=== PATIENT | male | born 1980 | race Caucasian/White ===

== ENCOUNTER 2017-01-18 15:19 | Emergency (ER) | payer BC ==
[~2017-01-18] VITALS: Ht 175.3 cm; Wt 137.8 kg
[~2017-01-18 15:19] MED LIST: LISINOPRIL10 MG PO; METFORMIN HCL500 M1 PO; ULTRAM50 MG PO; ZOFRAN4 MG PO
[2017-01-18 16:54] LABS: INFLUENZA A VIRAL ANTIGEN NEGATIVE; INFLUENZA B VIRAL ANTIGEN NEGATIVE
[2017-01-18] MEDS ORDERED: PREDNISONE20 MG PO (17:16)
[2017-01-18] MEDS ORDERED: HYCODAN SYRUP480 ML PO (17:16)
[2017-01-18] MEDS ORDERED: VENTOLIN HFA18 GM IH (17:16)
[2017-01-18 17:53] VITALS: BP 127/87
== END 2017-01-18 17:54 | disposition home or self-care (01) ==
LOC: EME 15:19
PROVIDERS: Physician Assistant
DX: J20.9 Acute bronchitis, unspecified (principal); E11.9 Type 2 diabetes mellitus without complications; I10 Essential (primary) hypertension; F17.200 Nicotine dependence, unspecified, uncomplicated
CPT/HCPCS: 71020; 87502; 87651 90; 94640; 99281; 99283; J7512